=== PATIENT | male | born 1970 | race Caucasian/White ===

== ENCOUNTER 2018-10-01 16:53 | Emergency (ER) | payer BC, MEDICAID ==
[~2018-10-01] VITALS: Ht 165.1 cm; Wt 49.0 kg
[2018-10-01 17:24] VITALS: BP 145/88
[2018-10-01 17:50] LABS: BASOPHILS % (AUTO) 1.2 % (0.0-2.0); EOSINOPHILS % (AUTO) 1.4 % (0.0-3.0); HEMATOCRIT 43.3 % (42.0-52.0); HEMOGLOBIN 15.6 G/DL (14.2-18.0); LYMPHOCYTES % (AUTO) 26.9 % (20.0-45.0); MEAN CORPUSCULAR VOLUME 90 FL (80-99); MONOCYTES % (AUTO) 8.5 % (1.0-10.0); NEUTROPHILS % (AUTO) 62.1 % (45.0-75.0); PLATELET COUNT 246 K/UL (150-450); WHITE BLOOD COUNT 9.6 K/UL (4.8-10.8)
[2018-10-01 18:00] LABS: APPEARANCE,URINE CLOUDY; BILIRUBIN, URINE NEGATIVE (NEGATIVE); GLUCOSE, URINE (UA) NEGATIVE (NEGATIVE); KETONES,URINE NEGATIVE (NEGATIVE); LEUKOCYTE ESTERASE ,URINE 3+ (NEGATIVE); NITRITE,URINE NEGATIVE (NEGATIVE); PH,URINE 6.5 (4.5-8.0); PROTEIN,URINE 3+ (NEGATIVE); UROBILINOGEN,URINE 1 MG/DL (0.0-1.0)
[2018-10-01 18:13] LABS: COLOR,URINE RED
[2018-10-01 18:17] LABS: ANION GAP 7 mmol/L (5-15); BLOOD UREA NITROGEN 18 mg/dL (7-18); CALCIUM 8.9 MG/DL (8.5-10.1); CARBON DIOXIDE 31 MMOL/L (21-32); CHLORIDE 101 MMOL/L (98-107); POTASSIUM 3.4 MMOL/L (3.5-5.1); SODIUM 139 MMOL/L (136-145)
[2018-10-01 18:21] LABS: ALANINE AMINOTRANSFERASE 23 U/L (12-78); ALBUMIN 3.8 G/DL (3.4-5.0); ALBUMIN/GLOBULIN RATIO 1.1 (1.0-2.7); ALKALINE PHOSPHATASE 77 U/L (46-116); ASPARTATE AMINO TRANSFERASE 18 U/L (15-37); BILIRUBIN,TOTAL 0.6 MG/DL (0.2-1.0)
--- NOTE | 2018-10-01 18:53 | Emergency Room Report ---
History of Present Illness General Chief Complaint: General Complaint Source: Patient Present Illness HPI 47-year-old male with history of BPH and recent right renal stent placement post renal stone here complaining of shortness of breath x1 week as well as hematuria x1 month. Patient reports that he went to [facility] end of July 2018 after severe right flank pain and was diagnosed with renal stone urologist and placed in a stent and also diagnosed her with BPH and started him on Flomax. he has mentioned his hematuria to his urologist and has an appointment with him this coming Thursday. He complains of shortness of breath and chest tightness when he is changing position from supine to lateral. Dizziness, syncope, fall and injury, palpitation, headache. She reports that he was put on ciprofloxacin for 10 days at the end of July due to infection of his prostate. Flank pain 5 out of 10 and intermittent. He is sexually active with men currently has one partner denies penile discharge Allergies: Coded Allergies: DOXYCYCLINE (Verified Allergy, Mild, 05/08/10) IODINE (Verified Allergy, Mild, 05/08/10) SULFAMETHOXAZOLE (Verified Allergy, Mild, 05/08/10) TRIMETHOPRIM (Verified Allergy, Mild, 05/08/10) Patient History Past Medical History: see triage record Past Surgical History: unable to obtain Pertinent Family History: none Immunizations: UTD Reviewed Nursing Documentation: PMH: Agreed; PSxH: Agreed Nursing Documentation-PMH Past Medical History: No History, Except For History Of Psychiatric Problem: Yes - Anxiety, Depression Review of Systems All Other Systems: negative except mentioned in HPI Physical Exam Vital Signs Date Time Temp Pulse Resp B/P (MAP) Pulse Ox O2 Delivery O2 Flow Rate FiO2 10/01/18 16:56 98.1 92 20 96 Room Air 10/01/18 17:24 145/88 Sp02 EP Interpretation: reviewed, normal General Appearance: normal inspection, well appearing, no apparent distress Head: normocephalic, atraumatic Eyes: bilateral eye normal inspection, bilateral eye PERRL ENT: normal ENT inspection, normal pharynx Neck: normal inspection, supple Respiratory: lungs clear, no rhonchi, no wheezing Cardiovascular #1: normal inspection, no edema, no murmur Gastrointestinal: normal inspection, non tender, soft, no mass, no organomegaly , no peritonitis, no bruit Rectal: deferred Genitourinary: no CVA tenderness Musculoskeletal: normal inspection, back normal, digits/nails normal Neurologic: normal inspection, alert, oriented x3, seat cover maker III-XII nml as tested Psychiatric: normal inspection, judgement/insight normal Skin: normal inspection, normal color, no rash, warm/dry Lymphatic: normal inspection, no adenopathy Medical Decision Making PA Attestation All my diagnosis and treatment plans were reviewed ad discussed with my supervising physician Dr. Kruger Diagnostic Impression: Primary Impression: Prostatitis Additional Impression: Hematuria ER Course 47-year-old male with history of BPH and recent right renal stent placement post renal stone here complaining of shortness of breath x1 week as well as hematuria x1 month. Patient reports that he went to [facility] end of July 2018 after severe right flank pain and was diagnosed with renal stone urologist and placed in a stent and also diagnosed her with BPH and started him on Flomax. he has mentioned his hematuria to his urologist and has an appointment with him this coming Thursday. He complains of shortness of breath and chest tightness when he is changing position from supine to lateral. Dizziness, syncope, fall and injury, palpitation, headache. She reports that he was put on ciprofloxacin for 10 days at the end of July due to infection of his prostate. Flank pain 5 out of 10 and intermittent. He is sexually active with men currently has one partner denies penile discharge Ddx considered but are not limited to: prostatitis, PE, sob secondary to stent mobility, anemia, Vital signs: are WNL, pt. is afebrile H&PE are most consistent with: sob secondary to stent mobility, prostatitis ORDERS: EKG, UA, tox screen, urine cx, cbc, cmp, troponin, keflex ED INTERVENTIONS: None required at this time. DISCHARGE: At this time pt. is stable for d/c to home. Will provide printed patient care instructions, and any necessary prescriptions. Care plan and follow up instructions have been discussed with the patient prior to discharge. after speaking with Dr. Kruger and after Dr. Kruger examining the patient it was decided not to order any CT scans and only assess the patient for possible anemia as well as urinary tract infection To follow with his primary care provider and his urologist however is if more chest tightness return to the emergency room leuk pos urine EKG Diagnostic Results Rate: normal Rhythm: NSR ST Segments: no acute changes Last Vital Signs Date Time Temp Pulse Resp B/P (MAP) Pulse Ox O2 Delivery O2 Flow Rate FiO2 10/01/18 17:24 98.1 88 18 145/88 100 Room Air Disposition: HOME, SELF-CARE Condition: Stable Scripts Cephalexin* (KEFLEX*) 500 Mg Capsule 500 MG ORAL EVERY 6 HOURS for 7 Days, #28 CAP Prov: Zohra Tran 10/01/18 Patient Instructions: Hematuria, Adult, Urinary Tract Infection, [id number] Additional Instructions: follow up with urologist. shortness of breath secondary to stent mobility. if chest pain and worsening shortness of breath return to ER Zohra Tran October 01, 2018 18:53
[2018-10-01] MEDS ORDERED: CEPHALEXIN500 MG ORAL (18:54)
== END 2018-10-01 19:11 | disposition home or self-care (01) ==
LOC: EMR 17:29
DX: N41.9 Inflammatory disease of prostate, unspecified (principal); R31.9 Hematuria, unspecified; R06.02 Shortness of breath; Z88.2 Allergy status to sulfonamides; Z88.8 Allergy status to other drugs, medicaments and biological substances; F31.9 Bipolar disorder, unspecified; F41.9 Anxiety disorder, unspecified
CPT/HCPCS: 36415; 80053; 80307; 81003; 84484; 85025; 93005; 99284

== ENCOUNTER 2019-04-18 13:10 | Emergency (ER) | payer MEDICAID ==
[~2019-04-18] VITALS: Ht 165.1 cm; Wt 55.8 kg
[~2019-04-18 13:10] MED LIST: CEPHALEXIN500 MG ORAL
[2019-04-18 13:20] VITALS: BP 140/87
--- NOTE | 2019-04-18 13:20 | NUR ---
ED Nurse Note: Pt is AAOX4, vss. with no acute distress. No skin issues noted.
--- NOTE | 2019-04-18 13:20 | NUR ---
ED Nurse Note: Pt c/o right flank pain and a lump on his testical. MD at bedside. Pt is cooperative and well groomed. Pt has a steady gait and is alert.
[2019-04-18 14:25] LABS: APPEARANCE,URINE CLEAR; BILIRUBIN, URINE NEGATIVE (NEGATIVE); COLOR,URINE PALE YELLOW; GLUCOSE, URINE (UA) NEGATIVE (NEGATIVE); KETONES,URINE NEGATIVE (NEGATIVE); LEUKOCYTE ESTERASE ,URINE 1+ (NEGATIVE); NITRITE,URINE NEGATIVE (NEGATIVE); PH,URINE 7 (4.5-8.0); PROTEIN,URINE NEGATIVE (NEGATIVE); UROBILINOGEN,URINE NORMAL MG/DL (0.0-1.0)
[2019-04-18 14:26] LABS: BASOPHILS % (AUTO) 0.9 % (0.0-2.0); EOSINOPHILS % (AUTO) 0.6 % (0.0-3.0); HEMATOCRIT 48.6 % (42.0-52.0); LYMPHOCYTES % (AUTO) 25.6 % (20.0-45.0); MEAN CORPUSCULAR VOLUME 93 FL (80-99); NEUTROPHILS % (AUTO) 65.9 % (45.0-75.0); PLATELET COUNT 247 K/UL (150-450); RED CELL DISTRIBUTION WIDTH 9.7 % (11.6-14.8); WHITE BLOOD COUNT 7.9 K/UL (4.8-10.8)
--- NOTE | 2019-04-18 14:32 | Emergency Room Report ---
History of Present Illness General Chief Complaint: Abdominal Pain Source: Patient (Oren Johnson MD) Present Illness HPI 48-year-old male presents ED for evaluation. Patient complaining of right flank pain which started yesterday. History of a kidney stone. Had stent placed and subsequently removed this year at [facility]. States he has been having right flank pain. Pain is dull, 5 out of 10, nonradiating. Denies dysuria. Denies fevers or chills. Also complaining of scrotal swelling which he noticed a few days ago. Denies any pain. Denies any discharge. No other aggravating or relieving factors. Denies any other associated swelling (Oren Johnson MD) Allergies: Coded Allergies: IODINE (Verified Allergy, Mild, 05/08/10) SULFAMETHOXAZOLE (Verified Allergy, Mild, 05/08/10) TRIMETHOPRIM (Verified Allergy, Mild, 05/08/10) Patient History Past Medical History: none Past Surgical History: none Pertinent Family History: none Social History: Denies: smoking, alcohol use, drug use Immunizations: UTD Reviewed Nursing Documentation: PMH: Agreed; PSxH: Agreed (Oren Johnson MD) Nursing Documentation-PMH Past Medical History: No History, Except For (Oren Johnson MD) Review of Systems All Other Systems: negative except mentioned in HPI (Oren Johnson MD) Physical Exam Vital Signs Date Time Temp Pulse Resp B/P (MAP) Pulse Ox O2 Delivery O2 Flow Rate FiO2 04/18/19 13:13 98.2 69 16 147/92 (110) 97 Room Air Sp02 EP Interpretation: reviewed, normal General Appearance: no apparent distress, alert, GCS 15, non-toxic Head: normocephalic, atraumatic Eyes: bilateral eye normal inspection, bilateral eye PERRL ENT: hearing grossly normal, normal pharynx, no angioedema, normal voice Neck: full range of motion, supple/symm/no masses Respiratory: chest non-tender, lungs clear, normal breath sounds, speaking full sentences Cardiovascular #1: regular rate, rhythm, no edema Cardiovascular #2: 2+ carotid (R), 2+ carotid (L), 2+ radial (R), 2+ radial (L) , 2+ dorsalis pedis (R), 2+ dorsalis pedis (L) Gastrointestinal: normal bowel sounds, non tender, soft, non-distended, no guarding, no rebound Rectal: deferred Genitourinary: CVA tenderness (R), other - nodular swelling scrotum. non tender Musculoskeletal: back normal, gait/station normal, normal range of motion, non- tender Neurologic: alert, oriented x3, responsive, motor strength/tone normal, sensory intact, speech normal Psychiatric: judgement/insight normal, memory normal, mood/affect normal, no suicidal/homicidal ideation Reflexes: 3+ bicep (R), 3+ bicep (L), 3+ tricep (R), 3+ tricep (L), 3+ knee (R) , 3+ knee (L) Lymphatic: no adenopathy (Oren Johnson MD) Medical Decision Making Diagnostic Impression: Primary Impression: Acute epididymitis ER Course Please refer to the initial note for the history exam and presentation at this time blood work and imaging are reviewed Patient's ultrasound reveals findings consistent with epididymitis The renal ultrasound was essentially clear otherwise in discussion with the patient he reports that his Stent was previously removed and he was concerned about any scratches or scar tissue I did discuss with him that these are impossible to be seen on the ultrasound exam however there appears to be appropriate flow and no signs of any obstruction Patient does report that he is sexually active he is treated for the epididymitis here and placed on doxycycline for home And requires close outpatient follow-up Labs Test 04/18/19 13:41 White Blood Count 7.9 K/UL (4.8-10.8) Red Blood Count 5.20 M/UL (4.70-6.10) Hemoglobin 17.0 G/DL (14.2-18.0) Hematocrit 48.6 % (42.0-52.0) Mean Corpuscular Volume 93 FL (80-99) Mean Corpuscular Hemoglobin 32.7 PG (27.0-31.0) Mean Corpuscular Hemoglobin Concent 35.0 G/DL (32.0-36.0) Red Cell Distribution Width 9.7 % (11.6-14.8) Platelet Count 247 K/UL (150-450) Mean Platelet Volume 5.8 FL (6.5-10.1) Neutrophils (%) (Auto) 65.9 % (45.0-75.0) Lymphocytes (%) (Auto) 25.6 % (20.0-45.0) Monocytes (%) (Auto) 7.0 % (1.0-10.0) Eosinophils (%) (Auto) 0.6 % (0.0-3.0) Basophils (%) (Auto) 0.9 % (0.0-2.0) Urine Color Pale yellow Urine Appearance Clear Urine pH 7 (4.5-8.0) Urine Specific [place] 1.010 (1.005-1.035) Urine Protein Negative (NEGATIVE) Urine Glucose (UA) Negative (NEGATIVE) Urine Ketones Negative (NEGATIVE) Urine Blood 3+ (NEGATIVE) Urine Nitrite Negative (NEGATIVE) Urine Bilirubin Negative (NEGATIVE) Urine Urobilinogen Normal MG/DL (0.0-1.0) Urine Leukocyte Esterase 1+ (NEGATIVE) Urine RBC 2-4 /HPF (0 - 0) Urine WBC 0-2 /HPF (0 - 0) Urine Squamous Epithelial Cells Occasional /LPF Urine Bacteria Occasional /HPF (NONE) Sodium Level 142 MMOL/L (136-145) Potassium Level 3.5 MMOL/L (3.5-5.1) Chloride Level 103 MMOL/L (98-107) Carbon Dioxide Level 28 MMOL/L (21-32) Anion Gap 11 mmol/L (5-15) Blood Urea Nitrogen 10 mg/dL (7-18) Creatinine 0.8 MG/DL (0.55-1.30) Estimat Glomerular Filtration Rate > 60 mL/min (>60) Glucose Level 112 MG/DL (74-106) Calcium Level 9.2 MG/DL (8.5-10.1) Total Bilirubin 0.4 MG/DL (0.2-1.0) Aspartate Amino Transf (AST/SGOT) 23 U/L (15-37) Alanine Aminotransferase (ALT/SGPT) 40 U/L (12-78) Alkaline Phosphatase 84 U/L (46-116) Total Protein 7.9 G/DL (6.4-8.2) Albumin 4.0 G/DL (3.4-5.0) Globulin 3.9 g/dL Albumin/Globulin Ratio 1.0 (1.0-2.7) Lipase 113 U/L (73-393) (Jamehdor,Ali DO) CT/MRI/US Diagnostic Results CT/MRI/US Diagnostic Results : Impression Testicular ultrasoundImpression: Hyperemic right epididymis, consistent with epididymitis No evidence of testicular torsion Small right hydrocele Normal left hemiscrotum Renal ultrasound no acute process (Walker Martinez DO) Last Vital Signs Date Time Temp Pulse Resp B/P (MAP) Pulse Ox O2 Delivery O2 Flow Rate FiO2 04/18/19 13:13 98.2 69 16 147/92 (110) 97 Room Air (Oren Johnson MD) Status: improved (Walker Martinez DO) Disposition: HOME, SELF-CARE Condition: Improved Scripts Doxycycline Monohydrate* (DOXYCYCLINE MONOHYDRATE*) 100 Mg Capsule 100 MG ORAL Q12H, #10 CAP 0 Refills Prov: Walker Martinez DO 04/18/19 Additional Instructions: Patient is provided with the discharge instructions notified to follow up with primary doctor in the next 2-3 days otherwise return to the er with any worsening symptoms. Please note that this report is being documented using Fair value technology. This can lead to erroneous entry secondary to incorrect interpretation by the dictating instrument. Oren Johnson MD Apr 18, 2019 14:32 Walker Martinez DO Apr 18, 2019 19:18
[2019-04-18 14:39] LABS: ANION GAP 11 mmol/L (5-15); BLOOD UREA NITROGEN 10 mg/dL (7-18); CALCIUM 9.2 MG/DL (8.5-10.1); CARBON DIOXIDE 28 MMOL/L (21-32); CHLORIDE 103 MMOL/L (98-107); CREATININE 0.8 MG/DL (0.55-1.30); POTASSIUM 3.5 MMOL/L (3.5-5.1); SODIUM 142 MMOL/L (136-145)
[2019-04-18 14:43] LABS: ALANINE AMINOTRANSFERASE 40 U/L (12-78); ALKALINE PHOSPHATASE 84 U/L (46-116); ASPARTATE AMINO TRANSFERASE 23 U/L (15-37); BILIRUBIN,TOTAL 0.4 MG/DL (0.2-1.0)
[2019-04-18 14:50] VITALS: BP 138/85
--- NOTE | 2019-04-18 14:51 | NUR ---
ED Nurse Note: Pt is resting with no complaints.
[2019-04-18] MEDS ORDERED: DOXYCYCLINE MO100 MG ORAL (15:10)
[2019-04-18] MEDS ORDERED: Azithromycin 250mg tab ORAL ONE (15:15)
[2019-04-18] MEDS ORDERED: Lidocaine 1% MPF 10mg/ml 5ml INJ ONE (15:15)
--- NOTE | 2019-04-18 15:23 | Diagnostic Imaging Report ---
Indications: Right testicular pain Technique: Grayscale and duplex images of the scrotum Comparison: none Findings:The right testicle measures 4.1cm in length. It demonstrates normal echogenicity. There is positive internal blood flow. The epididymis is very hyperemic There is a small hydrocele. The tail of the epididymis is somewhat heterogeneous. The left testicle measures 4.3 cm in length. It demonstrates normal echogenicity and normal Doppler flow. Normal epididymis. Impression: Hyperemic right epididymis, consistent with epididymitis No evidence of testicular torsion Small right hydrocele Normal left hemiscrotum
[2019-04-18 15:25] VITALS: BP 133/82
--- NOTE | 2019-04-18 15:25 | NUR ---
ER DISCHARGE NOTE: Patient is cleared to be discharged per ERMD, pt is aox4, on room air, with stable vital signs. pt was given dc and prescription instructions, pt was able to verbalize understanding, pt id band and iv site removed without complications. pt is able to ambulate with steady gait. pt took all belongings. Pt left ED and was able to ambulate to his vehicle.
--- NOTE | 2019-04-18 15:26 | Diagnostic Imaging Report ---
Indication: Right flank pain Technique: Grayscale and duplex images of the kidneys, retroperitoneum, and bladder were obtained. Comparison: none Findings: Right kidney measures 9.6 cm in length. Left kidney measures 9.5 cm in length. Both kidneys demonstrate normal echogenicity. No hydronephrosis. No focal abnormality. Normal inferior vena cava. Bladder is normal. The prostate is mildly enlarged, calculated volume 38 mL Impression: Negative for hydronephrosis Mild prostatomegaly.
== END 2019-04-18 15:25 | disposition home or self-care (01) ==
LOC: EMR 13:35
DX: N45.1 Epididymitis (principal); Z87.442 Personal history of urinary calculi; Z88.2 Allergy status to sulfonamides; Z88.8 Allergy status to other drugs, medicaments and biological substances; N43.3 Hydrocele, unspecified
CPT/HCPCS: 36415; 76770; 76870; 80053; 81003; 83690; 85025; 96372; 96374; J0696; Q0144; Z7502; 99284

== ENCOUNTER 2019-10-26 14:39 | Emergency (ER) | payer MEDICAID ==
[~2019-10-26] VITALS: Ht 165.1 cm; Wt 72.6 kg
[~2019-10-26 14:39] MED LIST changes: +DOXYCYCLINE MO100 MG ORAL
--- NOTE | 2019-10-26 14:55 | NUR ---
ED Nurse Note: Pt walked into ED w/ c/o R ear fullness. Pt doesn not have ear pain, but fullness nd popping sensation. He has chronic ear infections. Pt is alert and ox4, ambulatory.
--- NOTE | 2019-10-26 14:59 | Emergency Room Report ---
History of Present Illness General Chief Complaint: Earache Source: Patient Present Illness HPI 48-year-old male with history of HIV currently controlled and recurrent otitis media here complaining of 2 days of right ear pain rating a 10 out of 10. Denies any headache and dizziness. Denies any vertigo, hearing loss. Denies any trauma to the area. No mastoid tenderness noted. Denies fever and chills, cough and congestion, chest pain, shortness of breath. Patient appears to be stable with stable vital signs. Has not taken medication for symptom relief. Reports that amoxicillin family usually does not work on his ear infections. 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: No Patient History Past Medical History: see triage record Past Surgical History: none Pertinent Family History: none Reviewed Nursing Documentation: PMH: Agreed; PSxH: Agreed Nursing Documentation-PMH Past Medical History: No History, Except For Review of Systems All Other Systems: negative except mentioned in HPI Physical Exam Vital Signs Date Time Temp Pulse Resp B/P (MAP) Pulse Ox O2 Delivery O2 Flow Rate FiO2 10/26/19 14:47 98.4 80 16 111/81 (91) 100 Room Air Sp02 EP Interpretation: reviewed, normal General Appearance: no apparent distress, alert, GCS 15, non-toxic Head: normocephalic, atraumatic ENT: hearing grossly normal, normal pharynx, no angioedema, normal voice, other - Right TM bulging Neck: full range of motion, supple/symm/no masses Cardiovascular #1: regular rate, rhythm, no edema Gastrointestinal: non tender, soft Genitourinary: no CVA tenderness Musculoskeletal: back normal Neurologic: alert, motor strength/tone normal, oriented x3, sensory intact, responsive, speech normal Psychiatric: judgement/insight normal, memory normal, mood/affect normal, no suicidal/homicidal ideation Skin: no rash Lymphatic: no adenopathy Medical Decision Making PA Attestation All my diagnosis and treatment plans were reviewed ad discussed with my supervising physician Dr. Duffy Diagnostic Impression: Primary Impression: Otitis media ER Course 48-year-old male with history of HIV currently controlled and recurrent otitis media here complaining of 2 days of right ear pain rating a 10 out of 10. Denies any headache and dizziness. Denies any vertigo, hearing loss. Denies any trauma to the area. No mastoid tenderness noted. Denies fever and chills, cough and congestion, chest pain, shortness of breath. Patient appears to be stable with stable vital signs. Has not taken medication for symptom relief. Reports that amoxicillin family usually does not work on his ear infections. Ddx considered but are not limited to: Otitis media, otitis externa, sinusitis strep pharyngitis, URI, tonsillitis, peritonsillar abscess, influneza Vital signs: are WNL, pt. is afebrile H&PE are most consistent with: Otitis media right ear ORDERS: Cefdinir, ibuprofen ED INTERVENTIONS: None required at this time. Patient was evaluated in the context of the global COVID-19 pandemic, which necessitated consideration that the patient might be at risk for infection with the SARS-COV-2 virus that causes COVID-19. Institutional protocols and algorithms that pertain to the evaluation of patients at risk for COVID-19 are in a state of rapid change based on information relieved by multiple regulatory bodies including the CDC and the federal and state organizations. These policies and algorithms were followed during the patient's care in the ED. DISCHARGE: At this time pt. is stable for d/c to home. Will provide printed patient care instructions, and any necessary prescriptions. Care plan and follow up instructions have been discussed with the patient prior to discharge. Take medication as directed, follow primary doctor, if worsening symptoms return to the emergency room Last Vital Signs Date Time Temp Pulse Resp B/P (MAP) Pulse Ox O2 Delivery O2 Flow Rate FiO2 10/26/19 14:47 98.4 80 16 111/81 (91) 100 Room Air Disposition: HOME, SELF-CARE Condition: Stable Scripts Ibuprofen (Ibu) 800 Mg Tablet 800 MG PO TID, #30 TAB Prov: Zohra Tran 10/26/19 Cefdinir (CEFDINIR) 300 Mg Capsule 300 MG PO BID for 10 Days, #20 CAP Prov: Zohra Tran 10/26/19 Patient Instructions: Otitis Media, Adult, [id number] Additional Instructions: Take medication as directed, follow-up primary doctor, if worsening symptoms return to the emergency room Zohra Tran October 26, 2019 14:59
[2019-10-26] MEDS ORDERED: CEFDINIR300 MG PO (15:00)
[2019-10-26] MEDS ORDERED: IBU800 MG PO (15:00)
[2019-10-26 15:07] VITALS: BP 116/76
--- NOTE | 2019-10-26 15:09 | NUR ---
ER DISCHARGE NOTE: Patient is cleared to be discharged per ERMD, pt is aox4, on room air, with stable vital signs. pt was given dc and prescription instructions, pt was able to verbalize understanding, pt id band removed. pt is able to ambulate with steady gait. pt took all belongings.
[2019-10-26 15:10] VITALS: BP 115/71
== END 2019-10-26 15:10 | disposition home or self-care (01) ==
LOC: EMR 14:59
DX: H66.91 Otitis media, unspecified, right ear (principal); Z88.2 Allergy status to sulfonamides; Z88.8 Allergy status to other drugs, medicaments and biological substances; B20 Human immunodeficiency virus [HIV] disease
CPT/HCPCS: 99282

== ENCOUNTER 2020-07-22 08:41 | Emergency (ER) | payer MEDICAID ==
[~2020-07-22] VITALS: Ht 165.1 cm; Wt 53.5 kg
[~2020-07-22 08:41] MED LIST changes: +CEFDINIR300 MG PO; +IBU800 MG PO
[2020-07-22 09:08] VITALS: BP 148/86
--- NOTE | 2020-07-22 09:09 | NUR ---
pt stated he coughed really hard 4 days ago and felt pain in mid back after. he's been in pain ever since. it hurts when he moves
--- NOTE | 2020-07-22 09:25 | Emergency Room Report ---
History of Present Illness General Chief Complaint: Back Pain-No Injury Source: Patient Present Illness HPI Disclaimer: Please note that this report is being documented using DRAGON technology. This can lead to erroneous entry secondary to incorrect interpretation by the dictating instrument. HPI: 49-year-old male presents for evaluation of back pain. 3 days ago he had a forceful cough after which she reports pain over the right shoulder blade. He denies any persistence of a cough, fever, chills, shortness of breath, chest pain or other symptoms. He reports pain with bending and twisting motion and moving the right shoulder. Pain is not localized over the midline. He denies any numbness, tingling or weakness. Has been trying to stretch it out at home but has not taken any medications. Patient states he had a remote history of pneumothorax though this was iatrogenic secondary to bronchoscopy. He is conc erned he may have a pneumothorax again. PMH: Diverticulitis, nephrolithiasis PSH: Ureteral stent Allergies: Iodine, sulfa Social Hx: Denies Allergies: Coded Allergies: IODINE (Verified Allergy, Mild, 05/08/10) SULFAMETHOXAZOLE (Verified Allergy, Mild, 05/08/10) TRIMETHOPRIM (Verified Allergy, Mild, 05/08/10) COVID-19 Screening Contact w/high risk pt: No Recent Travel to affected area: No Experienced COVID-19 symptoms?: No COVID-19 Testing performed CONDUCTOR FREIGHT: No COVID-19 Screening: Negative COVID-19 Nursing Documentation-PMH Hx Cardiac Problems: Yes - HIV+, diveriticulitis Hx Hypertension: No Hx Pacemaker: No Hx Asthma: No Hx COPD: No Hx Diabetes: No Hx Cancer: No Hx Dialysis: No History Of Psychiatric Problem: No Hx Neurological Problems: No Hx Cerebrovascular Accident: No Hx Seizures: No Review of Systems All Other Systems: negative except mentioned in HPI Physical Exam Vital Signs Date Time Temp Pulse Resp B/P (MAP) Pulse Ox O2 Delivery O2 Flow Rate FiO2 07/22/20 08:52 98.2 72 17 148/86 (106) 97 Room Air General: Awake and alert, no acute distress HEENT: NC/AT. EOMI. Resp: Normal work of breathing. Breath sounds are equal. No wheezing. No crackles. Skin: Intact. No abrasions, laceration or rash over the exposed skin MSK: Normal tone and bulk. Moving all extremities. No obvious deformity. Neuro: Awake and alert. Mentating appropriately Back: No tenderness to palpation in the midline or paraspinal region of the cervical, thoracic or lumbosacral spine. There is point tenderness to palpation and palpable trigger point just medial to the tip of the scapula on the right side in the region of the rhomboid major. Medical Decision Making Diagnostic Impression: Primary Impression: Back spasm ER Course 49-year-old male presents for evaluation of right-sided back pain for 3 days. Most consistent with muscular strain or spasm. Patient concerned of pneumothorax x-ray was ordered but no pneumothorax, infiltrate or other significant pathology identified. Will treat with ibuprofen, Robaxin lidocaine patches. Continue stretching exercise and heat therapy. Will follow up with PMD and return with new or worsening symptoms. Chest X-Ray Diagnostic Results Chest X-Ray Diagnostic Results : Chest X-Ray Ordered: Yes # of Views/Limited/Complete: 1 View Indication: Other - Back pain EP Interpretation: Yes Interpretation: no consolidation, no effusion, no pneumothorax, no acute cardiopulmonary disease Impression: No acute disease Electronically Signed by: Electronically signed by Dr. Zane Tolbert MD Last Vital Signs Date Time Temp Pulse Resp B/P (MAP) Pulse Ox O2 Delivery O2 Flow Rate FiO2 07/22/20 09:08 98.2 17 148/86 97 Room Air 07/22/20 08:52 72 Disposition: HOME, SELF-CARE Condition: Stable Scripts Lidocaine Patch* (Lidoderm Patch*) 1 Each Adh..patch 1 PATCH TOPIC DAILY, #30 PATCH Patch(es) may remain in place for up to 12 hours in any 24-hour period. Prov: Zane Tolbert MD 07/22/20 Methocarbamol* (ROBAXIN-750*) 750 Mg Tablet 750 MG PO QID, #28 TAB 0 Refills Prov: Zane Tolbert MD 07/22/20 Ibuprofen* (MOTRIN*) 600 Mg Tablet 600 MG ORAL Q6H PRN for For Pain, #30 TAB 0 Refills Prov: Zane Tolbert MD 07/22/20 Referrals: [facility],REFERR[facility] (PCP) Zane Tolbert MD Jul 22, 2020 09:25
[2020-07-22] MEDS ORDERED: IBUPROFEN600 M1 ORAL (09:42)
[2020-07-22] MEDS ORDERED: LIDODERM700 M1 TOPIC (09:42)
[2020-07-22] MEDS ORDERED: ROBAXIN-750750 MG PO (09:42)
--- NOTE | 2020-07-22 09:48 | NUR ---
ER DISCHARGE NOTE: Patient is cleared to be discharged per ERMD, pt is aox4, on room air, with stable vital signs. pt was given dc and prescription instructions, pt was able to verbalize understanding. pt is able to ambulate with steady gait. pt took all belongings.
--- NOTE | 2020-07-22 10:24 | Diagnostic Imaging Report ---
EXAM: XR Chest, 1 View CLINICAL HISTORY: CP TECHNIQUE: Frontal view of the chest. COMPARISON: No relevant prior studies available. FINDINGS: Lungs: Unremarkable. No consolidation. Pleural space: Unremarkable. No pneumothorax. Heart: Unremarkable. No cardiomegaly. Mediastinum: Unremarkable. Bones/joints: Unremarkable. IMPRESSION: No focal infiltrate.
== END 2020-07-22 09:48 | disposition home or self-care (01) ==
LOC: EMR 08:49
DX: R25.2 Cramp and spasm (principal); B20 Human immunodeficiency virus [HIV] disease; Z88.2 Allergy status to sulfonamides; Z88.8 Allergy status to other drugs, medicaments and biological substances; M25.511 Pain in right shoulder
CPT/HCPCS: 71045; Z7502; 99283